=== PATIENT | male | born 1995 | race Two or more races ===

== ENCOUNTER 2022-08-18 14:40 | Inpatient (IN) | payer OTHER ==
[~2022-08-18] VITALS: Ht 180.3 cm; Wt 74.4 kg
[2022-08-18] MEDS ORDERED: FAMOTIDINE/PF INJ 20 MG/2 ML VIAL IV ONE ×2 (15:00→17:56)
[2022-08-18] MEDS ORDERED: methylPREDNISolone SOD SUCC 125 MG/2ML VIAL IV ONE (15:00)
[2022-08-18] MEDS ORDERED: IV NS 0.9% 1,000 ML BAG IV ONE ×2 (15:00→21:00)
[2022-08-18] MEDS ORDERED: diphenhydrAMINE HCL 50 MG/ML VIAL IV ONE (15:00)
[2022-08-18 15:28] LABS: BASOPHILS % (AUTO) 0.1 % (0.0-2.0); EOSINOPHILS % (AUTO) 0.2 % (0.0-6.0); HEMATOCRIT 40 % (39-51); HEMOGLOBIN 13.3 g/dL (13.5-17.5); LYMPHOCYTES % (AUTO) 5.9 % (20.0-44.0); MEAN CORPUSCULAR HGB CONC 33 g/dl (31.0-36.0); MEAN CORPUSCULAR VOLUME 89 fL (80-96); MONOCYTES # (AUTO) 1.5 K/uL (0.1-1.30); NEUTROPHILS # (AUTO) 14.5 K/uL (1.8-8.9); NEUTROPHILS % (AUTO) 84.8 % (43.0-81.0); PLATELET COUNT (AUTO) 336 K/uL (150-450); RED BLOOD CELL COUNT(AUTO) 4.49 MIL/uL (4.5-6.0); WHITE BLOOD COUNT (AUTO) 17.1 K/uL (4.3-11.0)
[2022-08-18 15:38] LABS: CALCIUM, SERUM 9.4 mg/dL (8.5-10.1); CREATININE 1.4 mg/dL (0.6-1.3); POTASSIUM 3.2 mmol/L (3.5-5.1)
[2022-08-18 15:52] LABS: ALBUMIN 3.9 g/dL (3.4-5.0); BILIRUBIN,DIRECT 0.1 mg/dL (0.0-0.2); BILIRUBIN,TOTAL 0.5 mg/dL (0.2-1.0); TOTAL PROTEIN, SERUM 8.4 g/dL (6.4-8.2)
[2022-08-18] MEDS ORDERED: methylPREDNISolone SOD SUCC 125 MG/2ML VIAL ONE (17:55)
[2022-08-18] MEDS ORDERED: diphenhydrAMINE HCL 50 MG/ML VIAL ONE (17:55)
[2022-08-18] MEDS ORDERED: ONDANSETRON HCL/PF 4 MG/2 ML VIAL IVP ONE (18:00)
[2022-08-18] MEDS ORDERED: ACETAMINOPHEN ES 500 MG TABLET PO ONE (18:00)
[2022-08-18] MEDS ORDERED: HYDROMORPHONE 1 MG/1 ML DISP.SYRIN ONE (18:40)
--- NOTE | 2022-08-18 18:44 | NUR ---
PT C/O SEVERE HEADACHE. REFUSING TYLENOL STATES "IT DOES NOT WORK" DR RUBI AWARE. MEDICATED ORDERED. SEE EMAR.
[2022-08-18] MEDS ORDERED: HYDROMORPHONE 1 MG/1 ML DISP.SYRIN IV ONE (19:00)
--- NOTE | 2022-08-18 19:21 | NUR ---
pt returned to ER bed [address]
[2022-08-18] MEDS ORDERED: CEFTRIAXONE 1GM BAG (ER ONLY) 50 ML IV ONE ×2 (19:30→19:39)
[2022-08-18] MEDS ORDERED: ALBUTEROL FS 2.5 MG/0.5 ML VIAL.NEB NEB PRN (19:30)
[2022-08-18] MEDS ORDERED: ONDANSETRON HCL/PF 4 MG/2 ML VIAL IVP PRN (19:30)
[2022-08-18] MEDS: IV NS 0.9% 1,000 ML IV SCH (19:30)
[2022-08-18] MEDS ORDERED: ACETAMINOPHEN 325 MG TABLET PO PRN (19:30)
[2022-08-18] MEDS ORDERED: AZITHROMYCIN 500 MG in IV D5W 250 ML IV ONE (19:30)
--- NOTE | 2022-08-18 19:33 | NUR ---
BLOOD AND COVID ANTIGEN SWAB COLLECTED AND SENT TO LAB
[2022-08-18] MEDS ORDERED: AZITHROMYCIN 500 MG VIAL ONE (19:39)
--- NOTE | 2022-08-18 19:46 | NUR ---
LACTIC 6.7
--- NOTE | 2022-08-18 20:15 | NUR ---
ZELALEM MELISSA WILL CALL BACK FOR REPORT
--- NOTE | 2022-08-18 20:37 | NUR ---
REPORT GIVEN TO SHIN CROW RN FOR TAE
--- NOTE | 2022-08-18 21:14 | NUR ---
PT TRANSFERRING TO [facility] 112-1 VIA ACLS PROTOCOL
--- NOTE | 2022-08-18 21:20 | NUR ---
CABIN WORKER ADMITTING NOTES PT ARRIVED TO UNIT VIA GURNEY FROM ER. PT A/O X4, ORIENTED TO NAME, , PLACE, TIME. COOPERATIVE, ABLE TO MAKE NEEDS KNOWN. ABLE TO ANSWER ADMISSION QUESTIONS. ON RA WITH NO S/S OF RESPIRATORY DISTRESS. DENIES PAIN AT THIS TIME. SKIN ASSESSMENT PERFORMED, INTACT. NOTED PT WITH B HEARING AID, PT COMPLAINING OF BLURRY VISION, PLACED ON TELE MONITOR READING SR 84. IV ACCESS ON L CHEST PORT-A CATH RUNNING NS AT 75 ML/HR, PATENT AND INTACT. ORIENTED TO UNIT AND HOW TO USE CALL LIGHT. PATIENT COMFORTABLE. BELONGINGS DOCUMENTED. SAFETY PRECAUTIONS PUT IN PLACE: BED LOCKED AND IN LOWEST POSITION, SIDE RAILS UP X3, CALL LIGHT AND TRAY TABLE WITHIN REACH. FAMILY MEMBER AT BEDSIDE, WILL CONTINUE TO MONITOR THROUGHOUT THE SHIFT.
[2022-08-18] MEDS ORDERED: CEFEPIME 1 GM VIAL ONE (21:51)
[2022-08-18] MEDS: MORPHINE SULFATE INJ 2 MG/ML DISP.SYRIN IV PRN (21:54)
[2022-08-18] MEDS: ENOXAPARIN SODIUM 40 MG/0.4 ML DISP.SYRIN SQ SCH (21:55)
[2022-08-18] MEDS: CEFEPIME 2 GM in IV D5W 100 ML IV SCH (22:23)
[2022-08-19] VITALS: BP 110/75
--- NOTE | 2022-08-19 00:48 | NUR ---
RN NOTE NOTED PT WITH N&V. X1 EMESIS THROUGHOUT THE NIGHT, ZOFRAN GIVEN MD ORDERED. WILL CONT TO MONITOR.
[2022-08-19] MEDS: MORPHINE SULFATE INJ 2 MG/ML DISP.SYRIN IV PRN (02:17)
--- NOTE | 2022-08-19 02:17 | NUR ---
RN NOTE PT COMPLAINTS OF HEADACHE RATED 9/10 ON PAIN SCALE. PAIN MEDS MORPHINE GIVEN ORDERED, PT TOLERATED WELL, WILL CONT TO MONITOR.
[2022-08-19 04:00] VITALS: BP 116/76
[2022-08-19] MEDS: CEFEPIME 2 GM in IV D5W 100 ML IV SCH ×3 (06:16→21:00)
--- NOTE | 2022-08-19 06:57 | NUR ---
PRISON LIBRARIAN CLOSING NOTES PT AWAKE ON BED, A/O X4, ON RA WITH NO S/S OF RESPIRATORY DISTRESS. DENIES PAIN AT THIS TIME. PER PT " I CAN SEE BETTER NOW WITH SLIGHT BLURRY VISION", ON TELE MONITOR CURRENTLY READING ST 112. IV ACCESS ON L CHEST PORT-A CATH RUNNING NS AT 75 ML/HR, PATENT AND INTACT. ALL DUE MEDS GIVEN, KEPT DRY AND CLEAN, SAFETY PRECAUTIONS PUT IN PLACE: BED LOCKED AND IN LOWEST POSITION, SIDE RAILS UP X3, CALL LIGHT AND TRAY TABLE WITHIN REACH. WILL ENDORSE TO AM SHIFT NURSE FOR CONTINUITY OF CARE.
--- NOTE | 2022-08-19 07:05 | NUR ---
RN OPENING NOTES RECEIVED REPORT FROM NIGHTSHIFT RN BRANDT. PATIENT IN BED A/O TIMES 4. OXYGEN SATURATION AT 100% ON ROOM AIR. SINUS TACHYCARDIA ON THE MONITOR. IV ACCESS ON LEFT CHEST WALL PORTACATH, RUNNING NORMAL SALINE ORDERED. SAFETY MEASURES IMPLEMENTED, WILL CONTINUE PLAN OF CARE AND ANTICIPATE NEEDS.
[2022-08-19 07:50] LABS: HEMATOCRIT 34 % (39-51); HEMOGLOBIN 11.1 g/dL (13.5-17.5); LYMPHOCYTES # (AUTO) 0.4 K/uL (0.8-4.8); LYMPHOCYTES % (AUTO) 3.8 % (20.0-44.0); MEAN CORPUSCULAR HGB CONC 33 g/dl (31.0-36.0); MEAN CORPUSCULAR VOLUME 90 fL (80-96); MONOCYTES # (AUTO) 0.6 K/uL (0.1-1.30); MONOCYTES % (AUTO) 5.8 % (2.0-12.0); NEUTROPHILS # (AUTO) 8.7 K/uL (1.8-8.9); NEUTROPHILS % (AUTO) 90.4 % (43.0-81.0); PLATELET COUNT (AUTO) 261 K/uL (150-450); RED BLOOD CELL COUNT(AUTO) 3.73 MIL/uL (4.5-6.0); WHITE BLOOD COUNT (AUTO) 9.6 K/uL (4.3-11.0)
[2022-08-19 08:00] VITALS: BP 111/75
[2022-08-19] MEDS: IV NS 0.9% 1,000 ML IV SCH (08:06)
[2022-08-19 08:09] LABS: BILIRUBIN,TOTAL 0.4 mg/dL (0.2-1.0); CREATININE 1.1 mg/dL (0.6-1.3); MAGNESIUM 1.9 mg/dL (1.8-2.4); PHOSPHORUS 3.9 mg/dL (2.5-4.9); POTASSIUM 3.4 mmol/L (3.5-5.1); TOTAL PROTEIN, SERUM 7.9 g/dL (6.4-8.2)
[2022-08-19] MEDS ORDERED: POTASSIUM CHLORIDE 20 MEQ TAB.PRT.SR PO ONE (10:00)
[2022-08-19] MEDS ORDERED: [UNRECOGNIZED DRUG - REMARK] (11:48)
[2022-08-19 12:00] VITALS: BP 97/54
[2022-08-19 16:00] VITALS: BP 110/71
--- NOTE | 2022-08-19 19:30 | NUR ---
keiry rn opening note received patient in room with mom. no s/s of apparent distress on room air. denies pain at this time. Patient ambulates with steady gain in the restroom. reading st on the tele monitor at this time. CHRISTINA portacath running NS @75mls/hr. encouraged with the use of call light. needs attended for now. will continue with patient's plan of care.
[2022-08-19 20:00] VITALS: BP 119/70
[2022-08-19] MEDS: ENOXAPARIN SODIUM 40 MG/0.4 ML DISP.SYRIN SQ SCH (21:02)
[2022-08-20] VITALS: BP 112/66
[2022-08-20 04:00] VITALS: BP 122/69
[2022-08-20] MEDS: IV NS 0.9% 1,000 ML IV SCH ×2 (05:40→11:42)
[2022-08-20] MEDS: CEFEPIME 2 GM in IV D5W 100 ML IV SCH ×2 (05:40→12:02)
--- NOTE | 2022-08-20 05:47 | NUR ---
noc rn note scheduled 0 IV NS hanged late. a whole bag of saline was still running.
--- NOTE | 2022-08-20 07:15 | NUR ---
RN OPENING NOTES: RECEIVED PATIENT IN BED ASLEEP BUT EASILY AROUSES TO VOICE. PATIENT HAS NO RESPIRATORY DISTRESS NOTED, BREATHING EVEN AND UNLABORED. ON RA WITH OXYGEN SATURATION OF 98%/ IV ACCESS ON LEFT CHEST WALL PERMACATH, INTACT, INFUSING WITH NS @ 75 ML/HR, SITE PATENT, NO S/S INFILTRATION. ALL SAFETY MEASURES IN PLACE. BED LOCKED AND IN LOWEST POSITION WITH BED ALARM ON. CALL LIGHT WITHIN REACH. WILL CONTINUE TO MONITOR PATIENT THROUGHOUT SHIFT. Addendum: 08/20/22 at 1851 by ROSALVA LACY RN PATIENT HAS PORTACATH IN PLACE.
--- NOTE | 2022-08-20 07:28 | NUR ---
noc rn closing note needs attended. report given to am rn for continuity of patient care.
[2022-08-20 08:00] VITALS: BP 120/75
--- NOTE | 2022-08-20 09:10 | NUR ---
PATIENT WAS PICKED UP BY [facility] FOR CT OF CHEST. PATIENT LEFT IN NO ACUTE DISTRESS
[2022-08-20 09:19] LABS: BASOPHILS % (AUTO) 0.4 % (0.0-2.0); EOSINOPHILS % (AUTO) 0.3 % (0.0-6.0); HEMATOCRIT 37 % (39-51); HEMOGLOBIN 12.2 g/dL (13.5-17.5); LYMPHOCYTES % (AUTO) 13.2 % (20.0-44.0); MEAN CORPUSCULAR HGB CONC 33 g/dl (31.0-36.0); MEAN CORPUSCULAR VOLUME 89 fL (80-96); MONOCYTES # (AUTO) 0.9 K/uL (0.1-1.30); MONOCYTES % (AUTO) 12.6 % (2.0-12.0); NEUTROPHILS # (AUTO) 5.5 K/uL (1.8-8.9); NEUTROPHILS % (AUTO) 73.5 % (43.0-81.0); PLATELET COUNT (AUTO) 274 K/uL (150-450); RED BLOOD CELL COUNT(AUTO) 4.18 MIL/uL (4.5-6.0); WHITE BLOOD COUNT (AUTO) 7.4 K/uL (4.3-11.0)
--- NOTE | 2022-08-20 09:34 | NUR ---
PATIENT'S BACK FROM THE CT SCAN, IN NO ACUTE DISTRESS NOTED.
[2022-08-20 09:53] LABS: CALCIUM, SERUM 8.8 mg/dL (8.5-10.1); POTASSIUM 3.4 mmol/L (3.5-5.1)
--- NOTE | 2022-08-20 10:20 | NUR ---
PATIENT C/O UNABLE TO CONTROL HIS HANDS AND NOTED HANDS TO BE DIAPHORETIC, NOTED WITH MINIMAL STRENGTH OF ACCOUNTING RECONCILIATION CLERK ON BILATERAL HANDS. PATIENT DENIES ANY PAIN OR DISCOMFORT BUT SEEMS TO BE A LITTLE ANXIOUS. SAID THAT SAME THING HAPPENED TO HIM FEW DAYS AGO. CHECKED BP 132/73, PULSE 112. CONTACTED DR. TYLER AND INFORMED OF THE SITUATION, ALSO SPOKE WITH FATHER KARL WITH NO FURTHER ORDERS AT THIS TIME BUT TO HAVE THE PATIENT AMBULATE. MD WAS HERE EARLIER AND SAW THE PATIENT BUT WILL ALSO BE HERE LATER TODAY.
--- NOTE | 2022-08-20 10:30 | NUR ---
CHECKED PATIENT AGAIN AND SAID THAT HIS HANDS ARE GETTING BETTER AND IS SOMEWHAT ABLE TO CONTROL IT. REFUSED TO WALK WITH THE NURSE AT THIS TIME BUT WILL CALL THE NURSE SOON HE'S READY. PATIENT IN NO ACUTE DISTRESS AT THIS TIME.
--- NOTE | 2022-08-20 14:55 | NUR ---
PATIENT WAS VISITED BY DR. TYLER AND NOTED PATIENT TO BE UNABLE TO CONTROL HIS HANDS AND FEET AGAIN. PATIENT SEEMS ANXIOUS WITH RESPIRATION RATE OF 32. V/S CHECKED BP 137/79, PULSE 119, 99% ON RA, TEMP 97.6. NO C/O CHEST PAIN OR DISCOMFORT. PATIENT WAS BEING ASSESSED BY THE DOCTOR AND STAYED WITH THE PATIENT
--- NOTE | 2022-08-20 15:00 | NUR ---
DR TYLER STATED THAT HE TRIED TO CALL THE PATIENTS' ONCOLOGIST DR. FERNANDEZ @ BUT NO ANSWER.
--- NOTE | 2022-08-20 15:12 | NUR ---
LORAZEPAM GIVEN ORDERED AND 500 ML BOLUS OF NS ADMINISTERED PER MD'S ORDER. PATIENT STATED THAT HE CAN FEEL HIS HANDS AGAIN. ASSISTED PATIENT TO BREATHE IN AND OUT THROUGH A PAPER BAG. WILL CONTINUE TO MONITOR PATIENT.
[2022-08-20] MEDS ORDERED: IV NS 0.9% 500 ML IV ONE (15:30)
[2022-08-20] MEDS ORDERED: LORAZEPAM INJ 2 MG/ML VIAL IV PRN (15:30)
[2022-08-20 16:00] VITALS: BP 117/65
[2022-08-20] MEDS ORDERED: POTASSIUM CHLORIDE 20 MEQ TAB.PRT.SR PO ONE (16:30)
--- NOTE | 2022-08-20 18:18 | NUR ---
PATIENT REQUESTED TO GO HOME TONIGHT. CALLED [facility] @ , SPOKE WITH DR. TYLER AND INFORMED REGARDING PATIENT'S CONCERN AND AGREED TO DISCHARGE THE PATIENT. PATIENT AND FATHER INFORMED. DISCHARGE PAPERWORK INITIATED.
--- NOTE | 2022-08-20 18:52 | NUR ---
HANDED PATIENT'S PAPERWORK TO THE PATIENT AND PATIENT SIGNED DISCHARGE PAPERS. TOOK OFF HIS ARM BAND. PATIENT IN NO ACUTE DISTRESS NOTED AT THIS TIME, NO S/S ANXIETY AT THIS TIME.
[2022-08-20] MEDS ORDERED: HEPARIN-LOCK FLUSH PORCINE PF 100 UNITS/1 ML (10 ML)DISP.SYRIN IV ONE (19:00)
--- NOTE | 2022-08-20 19:13 | NUR ---
CHARGE NURSE REMOVED PATIENT'S PORTACATH, NO BLEEDING NOTED. PATIENT TOLERATED PROCEDURE WELL. PATIENT WAS TO YOSEF TO THE LOBBY VIA W/CH IN NO ACUTE DISTRESS. PATIENT UNDERSTOOD ALL DISCHARGE INSTRUCTIONS GIVEN AND WILL FOLLOW UP WITH HIS ONCOLOGIST TOMORROW.
== END 2022-08-20 19:15 | disposition home or self-care (01) | DRG 177 ==
LOC: ER 14:45 → TELE1 20:48 → MEDSG1 08-20 07:52
PROVIDERS: ADMIT Internal Medicine; ATTEND Internal Medicine
DX: J15.6 Pneumonia due to other Gram-negative bacteria (principal); N17.0 Acute kidney failure with tubular necrosis; E87.20 Acidosis, unspecified; E87.1 Hypo-osmolality and hyponatremia; C78.02 Secondary malignant neoplasm of left lung; C78.01 Secondary malignant neoplasm of right lung; C79.89 Secondary malignant neoplasm of other specified sites; E87.6 Hypokalemia; R74.8 Abnormal levels of other serum enzymes; R42 Dizziness and giddiness; T50.995A Adverse effect of other drugs, medicaments and biological substances, initial encounter; Y92.009 Unspecified place in unspecified non-institutional (private) residence as the place of occurrence of the external cause; C62.90 Malignant neoplasm of unspecified testis, unspecified whether descended or undescended; Z79.899 Other long term (current) drug therapy
CPT/HCPCS: 36415; 70450-TC; 71045-TC; 71250-TC; 80048-TC; 80053-TC; 80076-TC; 83605-TC; 83735-TC; 84100-TC; 85025-TC; 87040-TC; 87081-TC; C9803; G0378; J0456; J0692; J0696; J1170; J1200; J1642; J1650; J2060; J2270; J2405; J2930; J3490; J7030; J7040; J7060